=== PATIENT | female | born 1950 | race Hispanic/Latino ===

== ENCOUNTER 2017-07-19 08:42 | Emergency (ER) | payer OTHER, MEDICARE ==
[~2017-07-19 08:42] MED LIST: METO-408 PO; SIMV20TA6 PO
== END 2017-07-19 09:20 | disposition home or self-care (01) ==
LOC: EDH 08:42
DX: L03.311 Cellulitis of abdominal wall (principal); I10 Essential (primary) hypertension; E78.5 Hyperlipidemia, unspecified